=== PATIENT | female | born 1990 | race American Indian/Alaskan Native ===

== ENCOUNTER 2020-12-27 15:07 | Emergency (ER) | END 2020-12-27 16:29 | disposition left against medical advice (07) | LOC: ED 15:07 | DX: J34.89 Other specified disorders of nose and nasal sinuses (principal); Z53.21 Procedure and treatment not carried out due to patient leaving prior to being seen by health care provider ==

== ENCOUNTER 2020-12-28 07:58 | Emergency (ER) | payer MEDICAID ==
[2020-12-28 08:17] VITALS: BP 115/80
--- NOTE | 2020-12-28 08:50 | Emergency Department Report ---
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 She states that she did not know one of the persons in the room was sick and she subsequently found out that she has had Covid 19. The patient is concerned that she too has COVID-19. She did not get vaccinated. She has no fever or chills. No cough or shortness of breath. Patient denies any chest pain. She is only complaining of nasal congestion and loss of smell. She is an asthmatic and she is out of her asthma medicines. She states that her wheezing has been more than usual. ED Review of Systems ROS: Stated complaint: EXTREME NOSE PAIN DIFF BREATHING Other details as noted in HPI Comment: All other systems reviewed and negative ED Past Medical Hx - Past Medical History Previous Medical History?: Yes Hx Asthma: Yes - Surgical History Past Surgical History?: Yes Additional Surgical History: C SECTION - Family History Family history: no significant - Social History Smoking Status: Never Smoker Substance Use Type: None - Medications Home Medications: Home Medications Medication Instructions Recorded Confirmed Last Taken Type ALBUTEROL NEB's [Proventil 0.083% 2.5 mg IH TID PRN #1 box 12/28/20 Unknown Rx NEBS] Albuterol Mdi (or & Nicu Only) 2 puff IH QID PRN #1 inhalation 12/28/20 Unknown Rx [ProAir HFA Inhaler] Cetirizine HCl [ZyrTEC] 10 mg PO DAILY #30 capsule 12/28/20 Unknown Rx Fluticasone/Vilanterol [Breo 1 each IH BID #1 blst.w.dev 12/28/20 Unknown Rx Ellipta 100-25 Mcg INH] Ipratropium/Albuter (Nf) 2 puff IH QID #1 inha 12/28/20 Unknown Rx [Combivent Inhaler] predniSONE [Deltasone] 20 mg PO DAILY #5 tablet 12/28/20 Unknown Rx Minor Respiratory Exam - Exam General: Vital signs noted. No distress. Alert and acting appropriately. HEENT: Yes Moist Mucous Membranes, No Pharyngeal Erythema, No Pharyngeal Exudates, No Rhinorrhea, No Conjuctival Injection, No Frontal Tenderness, No Maxillary Tenderness Ear: Neither TM Bulge, Neither TM Erythema, Neither EAC Pain, Neither EAC Discharge Neck: Yes Supple, No Adenopathy Lungs: Yes Good Air Exchange, No Wheezes, No Ronchi, No Stridor, No Cough, No Labored Respirations, No Retractions, No Use of Accessory Muscles, No Other Abnormal Lung Sounds Heart: Yes Regular, No Murmur Abdomen: Yes Normal Bowel Sounds, No Tenderness, No Peritoneal Signs Skin: No Rash, No Edema Neurologic: Alert and oriented, no deficits. Musculoskeletal: Unremarkable. ED Course Vital Signs 12/28/20 08:16 Temperature 98.2 F Pulse Rate 77 Respiratory 20 Rate Blood Pressure 115/80 O2 Sat by Pulse 99 Oximetry ED Medical Decision Making - Radiology Data Radiology results: report reviewed, image reviewed No acute process - Medical Decision Making X-ray noted. Vital signs normal. No tachycardia hypotension or hypoxia. Patient is not wheezing on exam Patient has been educated on COVID-19 and COVID-19 immunization. She is also been educated on quarantine and protection of others around her. No indication for antibiotics at this time. I am discharging her with prednisone and symptom management. Also giving her refills of her asthma medications. She is new to the area but does have Medicaid and has a primary care provider. However have given a referral to our primary care provider as well. Patient ambulatory, nontoxic [id number] and taking p.o. on discharge. She verbalizes understanding of discharge plan of care. Vital Signs 12/28/20 08:16 Temperature 98.2 F Pulse Rate 77 Respiratory 20 Rate Blood Pressure 115/80 O2 Sat by Pulse 99 Oximetry - Differential Diagnosis Rule out pneumonia Critical care attestation.: If time is entered above; I have spent that time in minutes in the direct care of this critically ill patient, excluding procedure time. ED Disposition Clinical Impression: URI (upper respiratory infection), Medication refill, History of asthma Disposition: DC- TO HOME OR SELFCARE Is pt being admited?: No Does the pt Need Aspirin: No Condition: Stable Instructions: Cough, Adult, [id number], Viral Respiratory Infection, [id number] Additional Instructions: meds as ordered today follow up with pcp to be sure you are getting better local referral below Prescriptions: Fluticasone/Vilanterol [Breo Ellipta 100-25 Mcg INH] 1 each IH BID #1 blst.w.dev Ipratropium/Albuter (Nf) [Combivent Inhaler] 2 puff IH QID #1 inha predniSONE [Deltasone] 20 mg PO DAILY #5 tablet Albuterol Mdi (or & Nicu Only) [ProAir HFA Inhaler] 2 puff IH QID PRN #1 inhalation PRN Reason: Shortness Of Breath ALBUTEROL NEB's [Proventil 0.083% NEBS] 2.5 mg IH TID PRN #1 box PRN Reason: Wheezing Cetirizine HCl [ZyrTEC] 10 mg PO DAILY #30 capsule Referrals: KIARA GAINES MD [Staff Physician] - 3-5 Days Time of Disposition: 09:20
[2020-12-28] MEDS ORDERED: predniSONE 20 MG TAB PO ONE (08:51)
--- NOTE | 2020-12-28 09:20 | XRay Report ---
XR chest routine 2V INDICATION / CLINICAL INFORMATION: sob. COMPARISON: None available. FINDINGS: SUPPORT DEVICES: None. HEART /PULMONARY VASCULATURE: No significant abnormality. LUNGS / PLEURA: No significant pulmonary or pleural abnormality. No pneumothorax. ADDITIONAL FINDINGS: No significant additional findings. IMPRESSION: 1. No acute findings. Signer Name: Costa Swanson MD Signed: 12/28/2020 9:16 AM Workstation Name: [id number]
== END 2020-12-28 10:51 | disposition home or self-care (01) ==
LOC: ED 07:58
DX: J06.9 Acute upper respiratory infection, unspecified (principal); J45.909 Unspecified asthma, uncomplicated; Z76.0 Encounter for issue of repeat prescription; Z98.890 Other specified postprocedural states
CPT/HCPCS: 71046; 99283; J7512

== ENCOUNTER 2021-06-03 18:29 | Emergency (ER) | payer MEDICAID ==
[2021-06-03 18:36] VITALS: BP 156/74
[2021-06-03] MEDS ORDERED: ALBUTEROL 2.5 MG/3 ML NEBU IH ONE (18:41)
[2021-06-03] MEDS ORDERED: methylPREDNISolone Sod Succinate 125 MG/2 ML INJ IM ONE ×2 (18:41→21:02)
[2021-06-03] MEDS ORDERED: IPRATROPIUM 0.02% NEBU 2.5 ML IH ONE (18:41)
--- NOTE | 2021-06-03 18:46 | Emergency Department Report ---
ED Shortness of Breath HPI - General Chief Complaint: Adult Asthma Stated Complaint: ASTHMA Source: patient Mode of arrival: Ambulatory Limitations: No Limitations - History of Present Illness Initial Comments: Patient is a 30-year-old -[place] female with a history of asthma with occasional exacerbations and uses albuterol nebulizer and inhalers at home as needed presents to the ED with complaint of acute onset persistent shortness of breath, persistent dry cough, chest tightness for the last 2 days, worse in the last 12 hours. Patient states that she has been using albuterol nebulizer at home in addition to albuterol inhaler with no relief. Patient denies dizziness, syncope, fever, chills, nausea and vomiting or diarrhea, abdominal pain, chest pain, headache, change in vision, sore throat, nasal and sinus congestion, back pain, neck pain or dysuria, urinary frequency and urgency. MD Complaint: shortness of breath, cough, "asthma attack" -: Sudden, days(s) (2) Severity: severe Pain Scale: 8 Quality: other (Chest tightness) Consistency: constant Improves With: nothing Worsens With: lying flat, exertion, movement, coughing Known History Of: asthma Context: recent URI, allergen exposure Associated Symptoms: cough Treatments Prior to Arrival: bronchodilator - Related Data Home Oxygen Therapy: No Previous Rx's Medication Instructions Recorded Last Taken Type Fluticasone/Vilanterol [Breo 1 each IH BID #1 blst.w.dev 12/28/20 Unknown Rx Ellipta 100-25 Mcg INH] predniSONE [Deltasone] 20 mg PO DAILY #5 tablet 12/28/20 Unknown Rx ALBUTEROL NEB's [Proventil 0.083% 3 ml IH Q6H PRN #75 ml 06/03/21 Unknown Rx NEBS] Albuterol Mdi (or & Nicu Only) 2 puff IH QID PRN #1 inhalation 06/03/21 Unknown Rx [ProAir HFA Inhaler] Benzonatate [Tessalon Perles] 100 mg PO Q8HR #30 cap 06/03/21 Unknown Rx Cetirizine HCl [ZyrTEC 10mg cap] 10 mg PO DAILY #30 capsule 06/03/21 Unknown Rx Ipratropium/Albuter (Nf) 2 puff IH QID #1 inha 06/03/21 Unknown Rx [Combivent Inhaler] Montelukast [Singulair] 10 mg PO QPM #30 tablet 06/03/21 Unknown Rx predniSONE [Deltasone] 40 mg PO QDAY #14 tab 06/03/21 Unknown Rx Allergies Allergy/AdvReac Type Severity Reaction Status Date / Time fexofenadine [From Ange] Allergy Hives Verified 12/28/20 08:13 CIG SMOKE Allergy Shortness Uncoded 06/03/21 18:31 of Breath ED Review of Systems ROS: Stated complaint: ASTHMA Other details as noted in HPI Constitutional: malaise. denies: chills, fever, weakness Eyes: denies: eye pain, eye discharge, vision change ENT: denies: ear pain, throat pain, dental pain, hearing loss, congestion Respiratory: cough, shortness of breath, SOB with exertion, wheezing Cardiovascular: other (Chest tightness). denies: chest pain, palpitations Endocrine: no symptoms reported Gastrointestinal: denies: abdominal pain, nausea, vomiting, diarrhea Genitourinary: denies: urgency, dysuria, discharge Musculoskeletal: denies: back pain, joint swelling, arthralgia Skin: denies: rash, lesions Neurological: denies: headache, weakness, paresthesias Psychiatric: denies: anxiety, depression Hematological/Lymphatic: denies: easy bleeding, easy bruising ED Past Medical Hx - Past Medical History Hx Asthma: Yes - Surgical History Additional Surgical History: C SECTION - Social History Smoking Status: Never Smoker Substance Use Type: None - Medications Home Medications: Home Medications Medication Instructions Recorded Confirmed Last Taken Type Fluticasone/Vilanterol [Breo 1 each IH BID #1 blst.w.dev 12/28/20 Unknown Rx Ellipta 100-25 Mcg INH] predniSONE [Deltasone] 20 mg PO DAILY #5 tablet 12/28/20 Unknown Rx ALBUTEROL NEB's [Proventil 0.083% 3 ml IH Q6H PRN #75 ml 06/03/21 Unknown Rx NEBS] Albuterol Mdi (or & Nicu Only) 2 puff IH QID PRN #1 inhalation 06/03/21 Unknown Rx [ProAir HFA Inhaler] Benzonatate [Tessalon Perles] 100 mg PO Q8HR #30 cap 06/03/21 Unknown Rx Cetirizine HCl [ZyrTEC 10mg cap] 10 mg PO DAILY #30 capsule 06/03/21 Unknown Rx Ipratropium/Albuter (Nf) 2 puff IH QID #1 inha 06/03/21 Unknown Rx [Combivent Inhaler] Montelukast [Singulair] 10 mg PO QPM #30 tablet 06/03/21 Unknown Rx predniSONE [Deltasone] 40 mg PO QDAY #14 tab 06/03/21 Unknown Rx ED Physical Exam - General Limitations: No Limitations General appearance: alert, in no apparent distress - Head Head exam: Present: atraumatic, normocephalic, normal inspection - Eye Eye exam: Present: normal appearance, PERRL, EOMI Pupils: Present: normal accommodation - ENT ENT exam: Present: normal exam, normal orophraynx, mucous membranes moist, TM's normal bilaterally, normal external ear exam - Neck Neck exam: Present: normal inspection, full ROM - Respiratory Respiratory exam: Present: respiratory distress (Mild respiratory distress), wheezes (Diffuse coarse wheezes throughout), accessory muscle use. Absent: ral es, rhonchi, stridor, chest wall tenderness, decreased breath sounds - Cardiovascular Cardiovascular Exam: Present: normal rhythm, tachycardia, normal heart sounds. Absent: systolic murmur, diastolic murmur, rubs, gallop - GI/Abdominal GI/Abdominal exam: Present: soft, normal bowel sounds. Absent: tenderness, guarding, rebound, hyperactive bowel sounds, hypoactive bowel sounds, organomegaly - Extremities Exam Extremities exam: Present: normal inspection, full ROM, normal capillary refill - Back Exam Back exam: Present: normal inspection, full ROM. Absent: tenderness, CVA tenderness (R), CVA tenderness (L), muscle spasm, paraspinal tenderness, vertebral tenderness - Neurological Exam Neurological exam: Present: alert, oriented X3, CN II-XII intact, normal gait, reflexes normal - Psychiatric Psychiatric exam: Present: normal affect, normal mood - Skin Skin exam: Present: warm, dry, intact, normal color. Absent: rash ED Course Vital Signs 06/03/21 06/03/21 18:34 20:31 Temperature 98.3 F Pulse Rate 108 H Pulse Rate [ 111 H Bilateral Throughout] Respiratory 28 H Rate Respiratory 20 Rate [Bilateral Throughout] Blood Pressure 156/74 [Right] O2 Sat by Pulse 95 Oximetry ED Medical Decision Making - Radiology Data Radiology results: report reviewed, image reviewed [facility] [address] [place] [address] XRay Report Signed Patient: ISIDRO WHALEN MR#: [id number] 51 : 1990 Acct:[id number] Age/Sex: 30 / F ADM Date: 06/03/21 Loc: ED Attending Dr: Ordering Physician: EMRE GARDUNO Date of Service: 06/03/21 Procedure(s): XR chest routine 2V Accession Number(s): [id number] cc: EMRE GARDUNO Fluoro Time In Minutes: CHEST 2 VIEWS INDICATION / CLINICAL INFORMATION: Asthma/dyspnea. COMPARISON: 12/28/20. FINDINGS: SUPPORT DEVICES: None. HEART / MEDIASTINUM: The heart size and pulmonary vasculature are normal. LUNGS / PLEURA: No significant pulmonary or pleural abnormality. No pneumothorax. ADDITIONAL FINDINGS: No significant additional findings. IMPRESSION: No acute abnormality or significant change. Signer Name: Guille Salazar MD Signed: 06/03/2021 7:07 PM Workstation Name: [id number] Transcribed By: RT Dictated By: Guille Salazar MD Electronically Authenticated By: Guille Salazar MD Signed Date/Time: 06/03/211906 DD/ 05 TD/TT: - Medical Decision Making This is a 30-year-old -[place] female with a history of asthma with occasional exacerbations and uses albuterol nebulizer and inhalers at home as needed presents to the ED with complaint of acute onset persistent shortness of breath, persistent dry cough, chest tightness for the last 2 days, worse in the last 12 hours. Patient states that she has been using albuterol nebulizer at home in addition to albuterol inhaler with no relief. In the ED, patient is alert and oriented x3 and is not in any distress. Patient was treated in the ED with 1 hour-long DuoNeb treatment. Patient was also given Solu-Medrol 125 mg intramuscular injection. Chest x-ray showed no acute cardiopulmonary abnormalities or pneumonitis. On reevaluation, patient wheezing resolved, patient felt better, oxygen saturation is 99% in room air, and tachycardia and tachypnea also resolved. Patient was discharged home on medications and advised to follow-up with her primary care physician in 5 to 7 days for reevaluation or return to the ED immediately if symptoms get worse. - Differential Diagnosis Asthma; bronchitis; pneumonia; URI; Critical care attestation.: If time is entered above; I have spent that time in minutes in the direct care of this critically ill patient, excluding procedure time. ED Disposition Clinical Impression: Acute bronchitis with asthma with acute exacerbation, Shortness of breath Disposition: 01 HOME / SELF CARE / HOMELESS Is pt being admited?: No Does the pt Need Aspirin: No Condition: Stable Instructions: Shortness of Breath, Adult, [id number], Cough, Adult, [id number]-[id number], Acute Bronchitis, Adult, [id number], Asthma, Adult, [id number]-[id number] Additional Instructions: Chest x-ray showed no acute cardiopulmonary abnormalities or pneumonitis. Therefore take medications with food, drink plenty of fluids and follow-up with your primary care physician in 5 to 7 days for reevaluation. Return to the ED immediately if symptoms get worse. Prescriptions: Ipratropium/Albuter (Nf) [Combivent Inhaler] 2 puff IH QID #1 inha predniSONE [Deltasone] 40 mg PO QDAY #14 tab Albuterol Mdi (or & Nicu Only) [ProAir HFA Inhaler] 2 puff IH QID PRN #1 inhalation PRN Reason: Shortness Of Breath ALBUTEROL NEB's [Proventil 0.083% NEBS] 3 ml IH Q6H PRN #75 ml PRN Reason: Wheezing Montelukast [Singulair] 10 mg PO QPM #30 tablet Benzonatate [Tessalon Perles] 100 mg PO Q8HR #30 cap Cetirizine HCl [ZyrTEC 10mg cap] 10 mg PO DAILY #30 capsule Referrals: [facility] [Provider Group] - 3-5 Days Time of Disposition: 21:02 Print Language: CUBAN
--- NOTE | 2021-06-03 19:11 | XRay Report ---
CHEST 2 VIEWS INDICATION / CLINICAL INFORMATION: Asthma/dyspnea. COMPARISON: 12/28/20. FINDINGS: SUPPORT DEVICES: None. HEART / MEDIASTINUM: The heart size and pulmonary vasculature are normal. LUNGS / PLEURA: No significant pulmonary or pleural abnormality. No pneumothorax. ADDITIONAL FINDINGS: No significant additional findings. IMPRESSION: No acute abnormality or significant change. Signer Name: Guille Salazar MD Signed: 06/03/2021 7:07 PM Workstation Name: [id number]
== END 2021-06-03 21:46 | disposition home or self-care (01) ==
LOC: ED 18:29
DX: J45.901 Unspecified asthma with (acute) exacerbation (principal); Z98.890 Other specified postprocedural states; Z88.8 Allergy status to other drugs, medicaments and biological substances; Z79.899 Other long term (current) drug therapy
CPT/HCPCS: 71046; 94640; 94644; 96372; 99283